=== PATIENT | male | born 1960 | race Caucasian/White ===

== ENCOUNTER 2017-04-10 12:11 | Emergency (ER) | payer BC ==
--- NOTE | 2017-04-10 13:01 | EDM.PDOC ---
ED HPI GENERAL MEDICAL PROBLEM - General Chief Complaint: Abdominal Pain Stated Complaint: [id number] STOMACH PAIN Time Seen by Provider: 04/10/17 12:59 Source of Information: Reports: Patient, RN, RN Notes Reviewed History Limitations: Reports: No Limitations - History of Present Illness INITIAL COMMENTS - FREE TEXT/NARRATIVE: Pt presents to ER with c/o diffuse abdominal pain. He states he had lithotripsy on . He states he was given oxycodone, flomax, and another med he cannot recall. He states he stopped taking the Oxycodone on Monday. He began getting pain again on Monday evening which progressively got worse. He states he feels he is constipated and has been taking stool softeners. Today the pain was so bad that he took another oxycodone. He also used 2 suppositories today. He states last BM was very small on Monday morning. Patient admits to decreased appetite. Denies fever, chills SOB, CP, N/V/D. Rates pain a 4/10 at this time. Onset: Gradual Onset Date: 04/06/17 Duration: Getting Worse Location: Reports: Abdomen Quality: Reports: Sharp, Stabbing Severity: Moderate Improves with: Reports: Medication Worsens with: Reports: None Associated Symptoms: Reports: No Other Symptoms Abdomen Pain Score (Numeric/FACES): 3 - Related Data Allergies Allergy/AdvReac Type Severity Reaction Status Date / Time cephalexin [From Keflex] Allergy Hives Verified 04/10/17 12:39 Penicillins Allergy Hives Verified 04/10/17 12:39 Home Meds: Home Meds Allopurinol [Zyloprim] 300 mg PO DAILY 04/25/16 [History] Aspirin [Lo-Dose Aspirin EC] 81 mg PO DAILY 04/25/16 [History] Calcium Citrate/Vitamin D3 [Calcium Citrate + D] 2 tab PO DAILY 04/25/16 [ History] Clopidogrel [Plavix] 75 mg PO DAILY 04/25/16 [History] Flaxseed Oil [Flax Oil] 1 tab PO DAILY 04/25/16 [History] Gluc 2KCl/Chondr/Jorge Hy/Hy Ac [Glucosamine & Chondroitin Cap] 1 tab PO BID [History] Lisinopril 5 mg PO DAILY 04/25/16 [History] Loratadine [Claritin] 10 mg PO DAILY 04/25/16 [History] Magnesium Amino Acid Chelate [Magnesium] 1 tab PO DAILY 04/25/16 [History] Metoprolol Succinate [Toprol XL] 25 mg PO DAILY 04/25/16 [History] Multivitamin [Multivitamins] 1 cap PO DAILY 04/25/16 [History] Nitroglycerin [Nitrostat] 0.4 mg PO ASDIRECTED PRN 04/25/16 [History] New [place]-3/DHA/Epa/Fish Oil [New Point-3 Fish Oil 1,200 MG Sfgl] 1,200 mg PO DAILY [History] Potassium Citrate [Urocit-K] 20 meq PO TID 04/25/16 [History] Turmeric Root Extract [Turmeric] 1 tab PO DAILY 04/25/16 [History] Ubidecarenone [Coenzyme Q10] 100 mg PO DAILY 04/25/16 [History] Vitamin B Complex [B Complex] 1 tab PO DAILY 04/25/16 [History] atorvaSTATin [Lipitor] 10 mg PO BEDTIME 04/25/16 [History] diphenhydrAMINE [Benadryl] 50 mg PO Q6HR 04/25/16 [History] Phenazopyridine [Pyridium] 1 tab PO TID 04/10/17 [History] Tamsulosin [Flomax] 1 tab PO BEDTIME 04/10/17 [History] oxyCODONE HCl/Acetaminophen [oxyCODONE-Acetaminophen 5-325] 1 tab PO TID PRN 06/23 [History] Past Medical History HEENT History: Reports: None, Impaired Vision Other HEENT History: wears glasses Cardiovascular History: Reports: PTCA Other Cardiovascular History: 04/13/2016 Other Respiratory History: states was told "dirty lungs" Gastrointestinal History: Reports: GERD Other Genitourinary History: history of kidney stones Musculoskeletal History: Reports: Arthritis Other Musculoskeletal History: knee discomfort Neurological History: Reports: None Psychiatric History: Reports: None Endocrine/Metabolic History: Reports: Obesity/BMI 30+ Hematologic History: Reports: None Immunologic History: Reports: None Oncologic (Cancer) History: Reports: None Dermatologic History: Reports: None - Infectious Disease History Infectious Disease History: Reports: Measles, Mumps - Past Surgical History HEENT Surgical History: Reports: Adenoidectomy, Tonsillectomy Cardiovascular Surgical History: Reports: Other (See Below) Other Cardiovascular Surgeries/Procedures: cardiac stents GI Surgical History: Reports: Hernia, Inguinal Male Surgical History: Reports: Lithotripsy ([facility]), Other (See Below) Other Male Surgeries/Procedures: lithrotrypsy x3 Musculoskeletal Surgical History: Reports: Shoulder Replacement Social & Family History - Tobacco Use Smoking Status *Q: Former Smoker Second Hand Smoke Exposure: No ED ROS GENERAL - Review of Systems Review Of Systems: ROS reveals no pertinent complaints other than HPI. ED EXAM, GI/ABD - Physical Exam Exam: See Below Exam Limited By: No Limitations General Appearance: Alert, WD/WN, Moderate Distress Eyes: Bilateral: Normal Appearance, EOMI Ears: Normal External Exam, Hearing Grossly Normal Nose: Normal Inspection Throat/Mouth: Normal Inspection, Normal Lips, Normal Teeth, Normal Gums, Normal Oropharynx, Normal Voice, No Airway Compromise Head: Atraumatic, Normocephalic Neck: Normal Inspection, Supple, Non-Tender, Full Range of Motion Respiratory/Chest: No Respiratory Distress, No Accessory Muscle Use, Chest Non- Tender, Crackles (LLL) Cardiovascular: Normal Peripheral Pulses, Regular Rate, Rhythm, No Edema, No Gallop, No JVD, No Murmur, No Rub GI/Abdominal Exam: Normal Bowel Sounds, Soft, No Organomegaly, No Distention, No Abnormal Bruit, No Mass, Tender (Male) Exam: Deferred Rectal (Males) Exam: Deferred Back Exam: Normal Inspection, Full Range of Motion Extremities: Normal Inspection, Normal Range of Motion, Non-Tender, No Pedal Edema, Normal Capillary Refill Neurological: Alert, Oriented, CN II-XII Intact, Normal Cognition, Normal Gait, Normal Reflexes, No Motor/Sensory Deficits Psychiatric: Anxious Skin Exam: Warm, Dry, Intact, Normal Color, No Rash Lymphatic: No Adenopathy Course - Vital Signs Last Recorded V/S: Last Vital Signs Temp 99.4 F 04/10/17 12:33 Pulse 64 04/10/17 12:33 Resp 20 04/10/17 12:33 BP 136/88 04/10/17 12:33 Pulse Ox 98 04/10/17 12:33 - Orders/Labs/Meds Orders: Active Orders 24 hr Category Date Time Status Peripheral IV Care [RC] . DIRECTED Care 04/10/17 13:17 Active Sodium Chloride 0.9% [Saline Flush] Med 04/10/17 13:16 Active 10 ml FLUSH ASDIRECTED PRN Peripheral IV Insertion Adult [OM.PC] Stat Oth 04/10/17 13:14 Ordered Medication Orders Sodium Chloride (Saline Flush) 10 ml FLUSH ASDIRECTED PRN PRN Reason: Keep Vein Open Last Admin: 04/10/17 17:31 Dose: 10 ml Labs: Laboratory Tests 04/10/17 04/10/17 04/10/17 Range/Units 13:26 13:26 13:26 WBC 8.7 (5.0-10.0) 10^3/uL RBC 4.31 L (4.6-6.2) 10^6/uL Hgb 14.8 (14.0-18.0) g/dL Hct 43.4 (40.0-54.0) % MCV 100.7 H (80-100) fL MCH 34.3 H (27.0-34.0) pg MCHC 34.1 (33.0-35.0) g/dL Plt Count 110 L (150-450) 10^3/uL Neut % (Auto) 73.1 (42.2-75.2) % Lymph % (Auto) 11.0 L (20.5-50.1) % [place] % (Auto) 15.2 H (2-8) % Eos % (Auto) 0.6 L (1.0-3.0) % Baso % (Auto) 0.1 (0.0-1.0) % Sodium 136 (135-145) mmol/L Potassium 4.8 (3.6-5.0) mmol/L Chloride 99 L (101-111) mmol/L Carbon Dioxide 26.0 (21.0-31.0) mmol/L Anion Gap 15.8 BUN 33 H (7-18) mg/dL Creatinine 1.8 H (0.6-1.3) mg/dL Est Cr Clr Drug Dosing 49.70 mL/min Estimated GFR (MDRD) 39 BUN/Creatinine Ratio 18.33 Glucose 92 (74-105) mg/dL Calcium 9.1 (8.4-10.2) mg/dl Total Bilirubin 1.5 H (0.2-1.0) mg/dL AST 37 (10-42) IU/L ALT 22 (10-60) IU/L Alkaline Phosphatase 35 L (42-121) IU/L Total Protein 7.3 (6.7-8.2) g/dl Albumin 3.8 (3.2-5.5) g/dl Globulin 3.5 Albumin/Globulin Ratio 1.09 Amylase 47 (28-100) U/L Lipase 12 L (22-51) U/L Urine Color (YELLOW) Urine Appearance (CLEAR) Urine pH (5.0-9.0) Ur Specific [place] (1.005-1.030) Urine Protein (NEGATIVE) Urine Glucose (UA) (NEGATIVE) Urine Ketones (NEGATIVE) Urine Occult Blood (NEGATIVE) Urine Nitrite (NEGATIVE) Urine Bilirubin (NEGATIVE) Urine Urobilinogen (0.2-1.0) mg/dL Ur Leukocyte Esterase (NEGATIVE) Urine RBC /HPF Urine WBC (0-5/HPF) /HPF Ur Epithelial Cells /HPF Urine Bacteria (0-FEW/HPF) /HPF Urine Mucus /LPF 04/10/17 Range/Units 13:35 WBC (5.0-10.0) 10^3/uL RBC (4.6-6.2) 10^6/uL Hgb (14.0-18.0) g/dL Hct (40.0-54.0) % MCV (80-100) fL MCH (27.0-34.0) pg MCHC (33.0-35.0) g/dL Plt Count (150-450) 10^3/uL Neut % (Auto) (42.2-75.2) % Lymph % (Auto) (20.5-50.1) % [place] % (Auto) (2-8) % Eos % (Auto) (1.0-3.0) % Baso % (Auto) (0.0-1.0) % Sodium (135-145) mmol/L Potassium (3.6-5.0) mmol/L Chloride (101-111) mmol/L Carbon Dioxide (21.0-31.0) mmol/L Anion Gap BUN (7-18) mg/dL Creatinine (0.6-1.3) mg/dL Est Cr Clr Drug Dosing mL/min Estimated GFR (MDRD) BUN/Creatinine Ratio Glucose (74-105) mg/dL Calcium (8.4-10.2) mg/dl Total Bilirubin (0.2-1.0) mg/dL AST (10-42) IU/L ALT (10-60) IU/L Alkaline Phosphatase (42-121) IU/L Total Protein (6.7-8.2) g/dl Albumin (3.2-5.5) g/dl Globulin Albumin/Globulin Ratio Amylase (28-100) U/L Lipase (22-51) U/L Urine Color Yellow (YELLOW) Urine Appearance Slightly cloudy (CLEAR) Urine pH 8.5 (5.0-9.0) Ur Specific [place] 1.015 (1.005-1.030) Urine Protein Negative (NEGATIVE) Urine Glucose (UA) Negative (NEGATIVE) Urine Ketones 15 H (NEGATIVE) Urine Occult Blood Moderate H (NEGATIVE) Urine Nitrite Negative (NEGATIVE) Urine Bilirubin Negative (NEGATIVE) Urine Urobilinogen 0.2 (0.2-1.0) mg/dL Ur Leukocyte Esterase Negative (NEGATIVE) Urine RBC 20-30 H /HPF Urine WBC 0-5 (0-5/HPF) /HPF Ur Epithelial Cells Rare /HPF Urine Bacteria Not seen (0-FEW/HPF) /HPF Urine Mucus Not seen /LPF Meds: Medications Generic Name Dose Route Start Last Admin Trade Name Freq PRN Reason Stop Dose Admin Sodium Chloride 10 ml 04/10/17 13:16 04/10/17 17:31 Saline Flush FLUSH 10 ml ASDIRECTED PRN Administration Keep Vein Open Discontinued Medications Generic Name Dose Route Start Last Admin Trade Name Freq PRN Reason Stop Dose Admin Hydromorphone HCl 1 mg 04/10/17 13:56 04/10/17 14:15 Dilaudid IVPUSH 04/10/17 13:57 1 mg ONETIME ONE Administration Lactated Ringer's 1,000 mls @ 999 mls/hr 04/10/17 13:18 04/10/17 13:15 Ringers, Lactated IV 04/10/17 14:18 999 mls/hr .BOLUS ONE Administration Sodium Chloride 1,000 mls @ 999 mls/hr 04/10/17 14:21 04/10/17 14:23 Normal Saline IV 04/10/17 15:21 999 mls/hr .BOLUS ONE Administration Sodium Chloride 1,000 mls @ 999 mls/hr 04/10/17 14:22 Normal Saline IV ASDIRECTED PASTORA Pantoprazole Sodium 40 mg/ 100 mls @ 20 mls/hr 04/10/17 15:45 Sodium Chloride IV .CONTINUOS PASTORA Iopamidol 100 ml 04/10/17 13:57 Isovue-300 (61%) IVPUSH 04/10/17 13:58 ONETIME ONE Ketorolac Tromethamine 30 mg 04/10/17 16:44 04/10/17 17:30 Toradol IVPUSH 04/10/17 16:45 30 mg ONETIME ONE Administration Pantoprazole Sodium 80 mg 04/10/17 15:41 Protonix Iv IVPUSH 04/10/17 15:42 .BOLUS ONE - Radiology Interpretation Free Text/Narrative:: Abdomen/Pelvis CT: Abnormal See rad report Departure - Departure Time of Disposition: 17:35 Disposition: DC/Tfer to [facility] Condition: Fair Clinical Impression: Ileus, Bilateral nephrolithiasis, Hydroureter Hydronephrosis Qualifiers: Hydronephrosis type: unspecified Qualified Code(s): N13.30 - Unspecified hydronephrosis - Discharge Information Forms: ED Department Discharge, Interfacility Transfer EMTALA - My Orders Last 24 Hours: My Active Orders 04/10/17 13:14 Peripheral IV Insertion Adult [OM.PC] Stat 04/10/17 13:16 Sodium Chloride 0.9% [Saline Flush] 10 ml FLUSH ASDIRECTED PRN 04/10/17 13:17 Peripheral IV Care [RC] . DIRECTED - Assessment/Plan Last 24 Hours: My Active Orders 04/10/17 13:14 Peripheral IV Insertion Adult [OM.PC] Stat 04/10/17 13:16 Sodium Chloride 0.9% [Saline Flush] 10 ml FLUSH ASDIRECTED PRN 04/10/17 13:17 Peripheral IV Care [RC] . DIRECTED
[2017-04-10] MEDS ORDERED: Sodium Chloride 0.9% 10 ML Syringe FLUSH PRN (13:16)
[2017-04-10] MEDS ORDERED: Lactated Ringers 1,000 ML IV ONE (13:18)
[2017-04-10] MEDS ORDERED: HYDROmorphone 1 MG/ML Syringe IVPUSH ONE (13:56)
[2017-04-10] MEDS ORDERED: Iopamidol 612 MG/ML 100 ML Bottle IVPUSH ONE (13:57)
--- NOTE | 2017-04-10 14:18 | CR ---
Clinical history: 57-year-old obese male with diffuse abdominal pain who has undergone recent lithotr ipsy ("6 x 9 mm diameter, mid pole calyceal calcification, right kidney" reported on CT scan 2016. Interpretation: 4 films confirm the presence of a solitary large 8 x 13 mm diameter oval (intravesicu lar?) calcification left pelvis. Discrete "oval midpole calculus right kidney" not appreciated on today's plain film exam (no addition al fragmented calcifications identified in the course of the right ureter). Midline sentinel small bowel loops possibly reflecting patient's pain and ileus. No sign of foreign body, mechanical bowel or free intraperitoneal air patchy infiltrate left base. Note: On one of the upright films. Suggestion of possible calculus obscured by gas in the course of t he proximal right ureter. If clinical symptomatology persists suggest it may be necessary to repeat u nenhanced CT scan abdomen/pelvis. CONCLUSION: Ileus. Calcification pelvis, on the left. (See comments above).
[2017-04-10] MEDS ORDERED: Sodium Chloride 0.9% 1,000 ML IV ONE (14:21)
[2017-04-10] MEDS ORDERED: Sodium Chloride 0.9% 1,000 ML IV SCH (14:22)
--- NOTE | 2017-04-10 15:19 | CT ---
Clinical history: 57 year-old 279 pound male with history diffuse abdominal pain status post lithotri psy "6 x 9 mm diameter mid pole calyceal calcification right kidney" CT scan 05 April 2016. Elevat ed serum creatinine. TECHNIQUE: Volume acquisition of data emergency unenhanced CT scan of the abdomen and pelvis (kidneys /ureters/bladder) obtained while the patient was lying supine on the Siemens multi slice CT scanner [place], [place]. All data archived in the PACS system for storage, ref ormatting and study. Interpretation: Abnormal. 1. Only a tiny 1-2 mm diameter calcified nidus remains in the mid pole calyx right kidney compared to previous lithotripsy exam 05 April 2016. 2. *New mild pyelocaliectasis and ipsilateral ureterectasis, on the right, associated with (post lith otripsy) distal right ureteral stone fragments. (Chronic presence 8.0 x 11.0 mm oval calcification co ntralateral distal left ureter unchanged since 05 April). 3. Subtle new pyelocaliectasis left kidney. No other evidence nephrolithiasis or signs of cortical ma ss lesion unenhanced kidneys. 4. Pancolonic diverticulosis. 5. No new signs of pelvic or abdominal mass lesion, inflammatory "dirty" peritoneal fat, mechanical b owel obstruction, ascites or free intraperitoneal air. 6. Gallbladder, unenhanced liver, stomach, spleen, atrophic pancreas and adrenal glands unremarkable.
[2017-04-10] MEDS ORDERED: Pantoprazole 40 MG Vial IVPUSH ONE (15:41)
[2017-04-10] MEDS ORDERED: Pantoprazole 40 MG in Sodium Chloride 0.9% 100 ML IV SCH (15:45)
[2017-04-10] MEDS ORDERED: Ketorolac 30 MG/ML SDV IVPUSH ONE (16:44)
[2017-04-10 17:39] VITALS: BP 137/88
== END 2017-04-10 18:08 ==
LOC: DL.ED 12:11
DX: N13.2 Hydronephrosis with renal and ureteral calculous obstruction (principal); N13.4 Hydroureter; K56.7 Ileus, unspecified; Z88.1 Allergy status to other antibiotic agents; Z88.0 Allergy status to penicillin; Z79.899 Other long term (current) drug therapy; Z79.82 Long term (current) use of aspirin; Z87.891 Personal history of nicotine dependence
CPT/HCPCS: 36415; 74019; 74176; 80053; 81001; 82150; 83690; 85025; 96361; 96374; 96375; 99285; J1170; J1885; J7030; J7050; J7120